=== PATIENT | male | born 1980 | race Two or more races ===

== ENCOUNTER 2019-04-15 22:59 | Inpatient (IN) | payer MEDICAID ==
[~2019-04-15] VITALS: Ht 170.2 cm; Wt 98.9 kg
[~2019-04-15 22:59] MED LIST: LURA40 PO
[2019-04-15 23:50] LABS: BASOPHILS % (AUTO) 0.8 % (0.0-2.0); EOSINOPHILS % (AUTO) 5.4 % (1.0-6.0); HEMATOCRIT 39.8 % (41-53); HEMOGLOBIN 13.7 g/dL (13.5-17.5); LYMPHOCYTES # (AUTO) 1.9 K/uL (1.0-4.8); LYMPHOCYTES % (AUTO) 26.7 % (22.0-44.0); MEAN CORPUSCULAR HEMOGLOBIN 31.1 pg (26.0-34.0); MEAN CORPUSCULAR HGB CONC 34.4 G/dL (31.0-37.0); MEAN CORPUSCULAR VOLUME 90 fL (80-100); MONOCYTES # (AUTO) 0.5 K/uL (0.1-1.0); MONOCYTES % (AUTO) 6.8 % (2.0-9.0); NEUTROPHILS # (AUTO) 4.3 K/uL (1.8-7.7); NEUTROPHILS % (AUTO) 60.3 % (40.0-70.0); PLATELET COUNT (AUTO) 281 K/uL (150-450); RED CELL DISTRIBUTION WIDTH 12.8 % (11.5-14.5)
[2019-04-15 23:50] LABS: AMPHET/METH SCREEN,URINE POSITIVE (NEGATIVE); BARBITURATE SCREEN, URINE NEGATIVE (NEGATIVE); BENZODIAZEPINES SCREEN,URINE NEGATIVE (NEGATIVE); CANNABINOID SCREEN,URINE POSITIVE (NEGATIVE); COCAINE SCREEN,URINE NEGATIVE (NEGATIVE); METHADONE SCREEN, URINE NEGATIVE (NEGATIVE); OPIATE SCREEN,URINE NEGATIVE (NEGATIVE); PHENCYCLIDINE SCREEN,URINE NEGATIVE (NEGATIVE)
[2019-04-15 23:58] LABS: ANION GAP 9 mmol/L (8-16); CARBON DIOXIDE 26 mmol/L (22-29); CHLORIDE 106 mmol/L (98-107); CREATININE 0.82 mg/dL (0.60-1.30); GLOMERULAR FILTR. RATE CALC > 60 mL/min (>60); GLUCOSE,RANDOM 101 mg/dL (70-110); POTASSIUM 4.1 mmol/L (3.5-5.1); SODIUM SERUM 141 mmol/L (136-145); UREA NITROGEN, BLOOD 15 mg/dL (7-18)
[2019-04-16] MEDS ORDERED: LORazepam 2 MG TABLET PO PRN
[2019-04-16] MEDS ORDERED: OLANZapine 5 MG RAPDIS TABLET PO PRN
[2019-04-16] MEDS ORDERED: ZOLPIDEM TARTRATE 10 MG TABLET PO PRN
[2019-04-16 00:04] LABS: ALANINE AMINOTRANSFERASE 50 U/L (12-78); ALBUMIN 3.7 g/dL (3.4-5.0); ALKALINE PHOSPHATASE 71 U/L (46-116); ASPARTATE AMINOTRANSFERASE 24 U/L (15-37); BILIRUBIN,TOTAL 0.3 mg/dL (0.1-1.0)
[2019-04-16 03:05] LABS: APPEARANCE,URINE CLEAR (CLEAR); BILIRUBIN,URINE NEGATIVE (NEGATIVE); GLUCOSE, URINE (UA) NEGATIVE (NEGATIVE); KETONES,URINE NEGATIVE (NEGATIVE); LEUKOCYTE ESTERASE ,URINE NEGATIVE (NEGATIVE); NITRATE,URINE NEGATIVE (NEGATIVE); OCCULT BLOOD,URINE TRACE (NEGATIVE); PROTEIN,URINE NEGATIVE (NEGATIVE)
[2019-04-16 03:05] LABS: CHOL/HDL RATIO 3.1 (4.2-7.3); CHOLESTEROL 119 mg/dL (131-200); HDL CHOLESTEROL 39 mg/dL (40-60); LDL CHOL (CALC.) 66 mg/dL (0-130); TRIGLYCERIDES 71 mg/dL (15-150)
[2019-04-16 03:20] LABS: BACTERIA,URINE None Seen /HPF (None Seen); WBC,URINE None Seen /HPF (0-5)
[2019-04-16 03:21] LABS: SQUAMOUS EPITHELIAL CELL,UR Rare /LPF (None Seen)
[2019-04-16 10:47] VITALS: BP 136/95
[2019-04-16] MEDS ORDERED: MAG HYDROX/AL HYDROX/SIMETH ES 30 ML SUSPENSION UDCUP PO PRN (12:00)
[2019-04-16] MEDS ORDERED: TUBERCULIN, PURIFIED PROTEIN DERIVATIVE 5 TU/0.1 ML SYRINGE ID ONE (12:00)
[2019-04-16] MEDS ORDERED: MAGNESIUM HYDROXIDE SUSPENSION 30 ML UDCUP PO PRN (12:00)
[2019-04-16] MEDS ORDERED: HydrOXYzine PAMOATE 50 MG CAPSULE PO PRN (12:00)
[2019-04-16] MEDS ORDERED: LOPERAMIDE HCL 2 MG CAPSULE PO PRN (12:00)
[2019-04-16] MEDS ORDERED: GuaiFENesin/D-METHORPHAN [SUGAR-FREE] 200-20MG/10 ML SYRUP UDCUP PO PRN (12:00)
[2019-04-16] MEDS ORDERED: ACETAMINOPHEN 325 MG TABLET PO PRN (12:00)
[2019-04-16] MEDS ORDERED: PROMETHAZINE HCL 25 MG TABLET PO PRN (12:00)
[2019-04-16] MEDS ORDERED: INFLUENZA VIRUS VACCINE QVS 2019-20 (3YR+)/PF 60 MCG/0.5 ML SYRINGE IM ONE (12:30)
[2019-04-16] MEDS ORDERED: PNEUMOCOCCAL VACCINE POLYVALENT 0.5 ML VIAL [PPSV23] IM ONE (12:30)
[2019-04-16] MEDS: THIAMINE HCL 100 MG TABLET PO SCH (16:37)
[2019-04-16 16:38] VITALS: BP 123/71
[2019-04-16 16:47] VITALS: BP 123/71
[2019-04-16] MEDS: OLANZapine 5 MG RAPDIS TABLET PO SCH (20:21)
[2019-04-17 00:49] VITALS: BP 104/67
[2019-04-17 08:08] LABS: HEMOGLOBIN A1C 5.4 % (4.5-6.2)
[2019-04-17 08:30] LABS: CHOL/HDL RATIO 2.9 (4.2-7.3); FREE T4 (FREE THYROXINE) 1.04 ng/dL (0.76-1.46); THYROID STIMULATING HORMONE 1.4 uIU/mL (0.36-3.74)
[2019-04-17] MEDS: MULTIVITAMINS WITH MINERALS, THERAPEUTIC TABLET PO SCH (08:31)
[2019-04-17] MEDS: THIAMINE HCL 100 MG TABLET PO SCH ×2 (08:31→16:54)
[2019-04-17] MEDS: FLUoxetine HCL 20 MG CAPSULE PO SCH (08:31)
[2019-04-17] MEDS: FOLIC ACID 1 MG TABLET PO SCH (08:31)
[2019-04-17] MEDS: NALTREXONE HCL 50 MG TABLET PO SCH (08:36)
[2019-04-17 09:10] VITALS: BP 111/52
[2019-04-17 16:22] VITALS: BP 120/58
[2019-04-17] MEDS: OLANZapine 5 MG RAPDIS TABLET PO SCH (20:50)
[2019-04-18 06:36] VITALS: BP 118/80
[2019-04-18 08:19] VITALS: BP 120/84
[2019-04-18] MEDS: NALTREXONE HCL 50 MG TABLET PO SCH (08:38)
[2019-04-18] MEDS: MULTIVITAMINS WITH MINERALS, THERAPEUTIC TABLET PO SCH (08:38)
[2019-04-18] MEDS: FOLIC ACID 1 MG TABLET PO SCH (08:39)
[2019-04-18] MEDS: FLUoxetine HCL 20 MG CAPSULE PO SCH (08:39)
[2019-04-18] MEDS: THIAMINE HCL 100 MG TABLET PO SCH ×2 (08:39→17:28)
[2019-04-18 16:26] VITALS: BP 117/85
[2019-04-18] MEDS: OLANZapine 10 MG RAPDIS TABLET PO SCH (21:11)
[2019-04-19 01:25] VITALS: BP 117/80
[2019-04-19 08:09] VITALS: BP 136/67
[2019-04-19] MEDS: FOLIC ACID 1 MG TABLET PO SCH (08:41)
[2019-04-19] MEDS: MULTIVITAMINS WITH MINERALS, THERAPEUTIC TABLET PO SCH (08:42)
[2019-04-19] MEDS: THIAMINE HCL 100 MG TABLET PO SCH ×2 (08:42→17:13)
[2019-04-19] MEDS: NALTREXONE HCL 50 MG TABLET PO SCH (08:42)
[2019-04-19] MEDS: FLUoxetine HCL 20 MG CAPSULE PO SCH (08:47)
[2019-04-19 16:22] VITALS: BP 103/65
[2019-04-19] MEDS: OLANZapine 10 MG RAPDIS TABLET PO SCH (20:13)
[2019-04-20 06:13] VITALS: BP 125/77
[2019-04-20 08:33] VITALS: BP 131/70
[2019-04-20] MEDS ORDERED: FLUoxetine HCL 20 MG CAPSULE PO SCH (09:00)
[2019-04-20] MEDS: FOLIC ACID 1 MG TABLET PO SCH (09:24)
[2019-04-20] MEDS: MULTIVITAMINS WITH MINERALS, THERAPEUTIC TABLET PO SCH (09:24)
[2019-04-20] MEDS: THIAMINE HCL 100 MG TABLET PO SCH ×2 (09:24→16:25)
[2019-04-20] MEDS: NALTREXONE HCL 50 MG TABLET PO SCH (09:24)
[2019-04-20] MEDS ORDERED: NALT50TA6 PO (15:38)
[2019-04-20] MEDS ORDERED: OLAN10TA6 PO (15:38)
[2019-04-20] MEDS ORDERED: FLUO-191 PO (15:38)
[2019-04-20] MEDS ORDERED: THIA100T67 PO (15:44)
[2019-04-20] MEDS ORDERED: FOLI1 PO (15:45)
[2019-04-20] MEDS ORDERED: MULT-1239 PO (15:46)
[2019-04-20 16:15] VITALS: BP 114/65
== END 2019-04-20 18:40 | disposition home or self-care (01) | DRG 750 ==
LOC: EMS 23:00 → B2S 04-16 07:07
PROVIDERS: ADMIT Psychiatry & Neurology Psychiatry; ATTEND Psychiatry & Neurology Psychiatry
DX: F20.0 Paranoid schizophrenia (principal); R45.851 Suicidal ideations; Z91.14 Patient's other noncompliance with medication regimen; F10.10 Alcohol abuse, uncomplicated; F15.90 Other stimulant use, unspecified, uncomplicated; J45.909 Unspecified asthma, uncomplicated; Z81.8 Family history of other mental and behavioral disorders
CPT/HCPCS: 83036; 84439; 84443; 86592; 87081; 90686; G0480